=== PATIENT | female | born 1945 | race Caucasian/White ===

== ENCOUNTER → 2017-08-07 | Outpatient (CLI) | payer BC ==
[~2017-08-07] MED LIST: ALBUTEROL INHALER PO; AMINOPHYLLINE 25 MG/ML, 10ML ONE; ASPI-496 PO; BISA5TAB77 PO; BUPR300T4 PO; CETIRIZINE PO; CYCL1DRO EACHEYE; DEXL60CA2 PO; DOCU100C33 PO; EYE15DRO EACHEYE; HYDR2TAB29 PO; INSU100V9 PF; LEVO112T2 PO; LEVO137T25 PO; LEVO75TA PO; MONT10TA9 PO; POLYETHYLENE GLYCOL PO; QUIN40TA7 PO; REGADENOSON 0.4 MG/5 ML SYRINGE ONE; ROSU20TA PO; [UNRECOGNIZED DRUG - OTHER] PO
== END | disposition home or self-care (01) ==
LOC: CFH 06:38
PROVIDERS: ATTEND Nurse Practitioner Family
DX: I35.8 Other nonrheumatic aortic valve disorders (principal); I37.1 Nonrheumatic pulmonary valve insufficiency; I10 Essential (primary) hypertension; E78.5 Hyperlipidemia, unspecified; E10.9 Type 1 diabetes mellitus without complications; Z85.01 Personal history of malignant neoplasm of esophagus; Z85.3 Personal history of malignant neoplasm of breast
CPT/HCPCS: 78452; 93017; 93306; A9502; J0280; J2785

== ENCOUNTER → 2021-05-02 | Outpatient (CLI) | payer BC, OTHER ==
[~2021-05-02] MED LIST changes: -AMINOPHYLLINE 25 MG/ML, 10ML ONE; -BUPR300T4 PO; +BUPR300T94 PO; +MONT10TA17 PO; -MONT10TA9 PO; +QUIN40TA15 PO; -QUIN40TA7 PO; -REGADENOSON 0.4 MG/5 ML SYRINGE ONE; -ROSU20TA PO; +ROSU20TA2 PO
== END | disposition home or self-care (01) ==
LOC: CVU 07:26
PROVIDERS: ATTEND Internal Medicine Cardiovascular Disease
DX: I65.23 Occlusion and stenosis of bilateral carotid arteries (principal); I73.9 Peripheral vascular disease, unspecified
CPT/HCPCS: 93880

== ENCOUNTER 2021-05-04 06:38 | Outpatient (CLI) | payer OTHER | END 2021-05-04 23:59 | disposition home or self-care (01) | LOC: CVU 06:38 | PROVIDERS: ATTEND Internal Medicine Cardiovascular Disease | DX: I08.0 Rheumatic disorders of both mitral and aortic valves (principal); R06.02 Shortness of breath; I73.9 Peripheral vascular disease, unspecified | CPT/HCPCS: 93306 ==